=== PATIENT | female | born 1975 | race Caucasian/White ===

== ENCOUNTER 2018-01-26 11:25 | Emergency (ER) | payer MEDICAID ==
[~2018-01-26] VITALS: Ht 152.4 cm; Wt 66.0 kg
[~2018-01-26 11:25] MED LIST: ACET-2178 PO; NO MEDS TO REPORT
[2018-01-26 14:27] LABS: BASOPHILS % 0.8 % (0.0-2.0); EOSINOPHILS % 0.7 % (0.0-5.0); HEMATOCRIT. 27.9 % (36.0-48.0); LYMPHOCYTES % 24.3 % (20.0-50.0); MEAN CORPUSCULAR HEMOGLOBIN 16.4 pg (28.0-32.0); MEAN CORPUSCULAR VOLUME 56.9 fL (81.0-99.0); MEAN PLATELET VOLUME 8.7 fl (7.4-10.4); MONOCYTES % 4.1 % (2.0-8.0); NEUTROPHILS % 70.1 % (40.0-76.0); PLATELET 440 x1000/uL (130-400); RED BLOOD CELL COUNT 4.91 mill/uL (4.2-5.4); RED CELL DISTRIBUTION WIDTH 18.7 % (11.6-14.6)
[2018-01-26 14:33] LABS: CHLORIDE 107 mEq/L (98-107)
[2018-01-26 14:35] LABS: PARTIAL THROMBOPLASTIN TIME 24.8 sec (23.4-31.0); PROTHROMBIN TIME 10.7 sec (9.4-11.6)
[2018-01-26 15:40] LABS: PLATELET ESTIMATE INCREASED
[2018-01-26 16:31] LABS: CLARITY URINE CLEAR (CLEAR); COLOR URINE YELLOW (YELLOW); KETONES URINE NEGATIVE (NEGATIVE); LEUKOCYTE ESTERASE URINE NEGATIVE (NEGATIVE); NITRITE URINE NEGATIVE (NEGATIVE); OCCULT BLOOD URINE 2+ (NEGATIVE); PH URINE 5.5 (4.5-8.0); PROTEIN URINE NEGATIVE (NEGATIVE); SPECIFIC GRAVITY URINE 1.022 (1.005-1.030); UROBILINOGEN URINE 0.2 E.U./dL (0.2-1.0)
[2018-01-26] MEDS ORDERED: METOCLOPRAMIDE HCL 10MG/2ML VIAL IV ONE (17:15)
[2018-01-26] MEDS ORDERED: ACETAMINOPHEN 325MG TABLET PO ONE (17:15)
[2018-01-26] MEDS ORDERED: SODIUM CHLORIDE 0.9% 1,000 ML IV ONE (17:15)
[2018-01-26 19:54] VITALS: BP 121/69
== END 2018-01-26 20:01 | disposition home or self-care (01) ==
LOC: ER 13:08
DX: R51 Headache (principal); R42 Dizziness and giddiness; D64.9 Anemia, unspecified; I51.7 Cardiomegaly; Z88.6 Allergy status to analgesic agent
CPT/HCPCS: 36415; 70450; 71045; 80053; 81003; 81025; 85025; 85610; 85730; 93005; 96361; 96374; 99285; J2765; J7030; Z7610

== ENCOUNTER 2018-06-06 23:17 | Inpatient (IN) | payer SELFPAY ==
[~2018-06-06] VITALS: Ht 152.4 cm; Wt 63.5 kg
[2018-06-07 02:24] LABS: BASOPHILS % 0.2 % (0.0-2.0); HEMATOCRIT. 35.6 % (36.0-48.0); HEMOGLOBIN. 11.3 g/dL (12.0-16.0); LYMPHOCYTES % 14.2 % (20.0-50.0); MEAN CORPUSCULAR HEMOGLOBIN 23.7 pg (28.0-32.0); MEAN CORPUSCULAR VOLUME 74.7 fL (81.0-99.0); MEAN PLATELET VOLUME 8.6 fl (7.4-10.4); MONOCYTES % 4.9 % (2.0-8.0); NEUTROPHILS % 79.7 % (40.0-76.0); PLATELET 281 x1000/uL (130-400); RED BLOOD CELL COUNT 4.76 mill/uL (4.2-5.4); RED CELL DISTRIBUTION WIDTH 24.8 % (11.6-14.6)
[2018-06-07 02:26] LABS: CHLORIDE 105 mEq/L (98-107)
[2018-06-07] MEDS ORDERED: SODIUM CHLORIDE 0.9% 1,000 ML IV SCH (05:19)
[2018-06-07 06:10] LABS: HCG SCREEN NEGATIVE
[2018-06-07 06:37] LABS: PLATELET ESTIMATE NORMAL
[2018-06-07] MEDS ORDERED: BUTALBITAL/ACETAMINOPHEN/CAFFEINE 50/325/40MG TABLET PO PRN (08:30)
[2018-06-07] MEDS ORDERED: DOCUSATE SODIUM 100MG CAPSULE PO PRN (08:30)
[2018-06-07] MEDS ORDERED: NA PHOS,M-B/NA PHOS,DI-BA ENEMA 118ML PR PRN (08:30)
[2018-06-07] MEDS ORDERED: CLONIDINE 0.1MG TABLET PO PRN (08:30)
[2018-06-07] MEDS ORDERED: GUAIFENESIN 200MG/10ML SUGAR FREE UDC PO PRN (08:30)
[2018-06-07] MEDS ORDERED: DIPHENHYDRAMINE 50MG/ML VIAL IV PRN (08:30)
[2018-06-07] MEDS ORDERED: LORAZEPAM 0.5MG TABLET PO PRN (08:30)
[2018-06-07] MEDS ORDERED: IPRATROPIUM/ALBUTEROL 0.5-3(2.5)MG/3ML NEB INH PRN (08:30)
[2018-06-07] MEDS ORDERED: TRAMADOL 50MG TABLET PO PRN (08:30)
[2018-06-07] MEDS ORDERED: NITROGLYCERIN 0.4MG TABLET SL SL PRN (08:30)
[2018-06-07] MEDS ORDERED: MAGNESIUM/ALUMINUM HYDROXIDE/SIMETHICONE 30ML UDC PO PRN (08:30)
[2018-06-07] MEDS ORDERED: ACETAMINOPHEN 325MG TABLET PO PRN (08:30)
[2018-06-07] MEDS ORDERED: ONDANSETRON HCL 4MG/2ML INJ IV PRN (08:30)
[2018-06-07 09:00] VITALS: BP 129/76
[2018-06-07] MEDS ORDERED: FERR-71 MT (09:17)
[2018-06-07 09:18] VITALS: BP 129/76
[2018-06-07 09:32] LABS: CLARITY URINE CLEAR (CLEAR); COLOR URINE YELLOW (YELLOW); KETONES URINE NEGATIVE (NEGATIVE); LEUKOCYTE ESTERASE URINE NEGATIVE (NEGATIVE); NITRITE URINE NEGATIVE (NEGATIVE); OCCULT BLOOD URINE NEGATIVE (NEGATIVE); PROTEIN URINE NEGATIVE (NEGATIVE); SPECIFIC GRAVITY URINE 1.005 (1.005-1.030); UROBILINOGEN URINE 0.2 E.U./dL (0.2-1.0)
[2018-06-07 09:42] LABS: *COCAINE SCREEN URINE NEGATIVE (NEGATIVE)
[2018-06-07 09:43] LABS: *AMPHETAMINES SCREEN URINE NEGATIVE (NEGATIVE); *BARBITURATES SCREEN URINE NEGATIVE (NEGATIVE); CANNABINOID URINE SCREEN NEGATIVE (NEGATIVE); METHADONE URINE SCREEN NEGATIVE (NEGATIVE); OPIATES URINE SCREEN NEGATIVE (NEGATIVE); PHENCYCLIDINE URINE SCREEN NEGATIVE (NEGATIVE)
[2018-06-07 09:47] LABS: *BENZODIAZEPINES SCREEN URINE NEGATIVE (NEGATIVE)
[2018-06-07] MEDS: CLOPIDOGREL 75MG TABLET PO SCH (09:58)
[2018-06-07] MEDS: FAMOTIDINE 20MG TABLET PO SCH ×2 (09:58→21:48)
[2018-06-07] MEDS: ENOXAPARIN 40MG/0.4ML SYR SUBCUT SCH (13:20)
[2018-06-07 16:00] VITALS: BP 102/65
[2018-06-07 16:46] LABS: CREATINE KINASE 53 IU/L (26-192)
[2018-06-07 16:48] LABS: CREATINE KINASE MB FRACTION < 1.0 ng/mL (0.5-3.6)
[2018-06-07 20:00] VITALS: BP 123/80
[2018-06-07] MEDS ORDERED: ZOLPIDEM TARTRATE 5MG TABLET PO PRN (21:00)
[2018-06-08] VITALS: BP 122/72
[2018-06-08 00:27] LABS: CREATINE KINASE MB FRACTION < 1.0 ng/mL (0.5-3.6)
[2018-06-08 00:33] LABS: CREATINE KINASE 95 IU/L (26-192)
[2018-06-08 04:00] VITALS: BP 130/70
[2018-06-08 08:00] VITALS: BP 105/62
[2018-06-08] MEDS: CLOPIDOGREL 75MG TABLET PO SCH (09:39)
[2018-06-08] MEDS: ENOXAPARIN 40MG/0.4ML SYR SUBCUT SCH (09:39)
[2018-06-08] MEDS: FAMOTIDINE 20MG TABLET PO SCH (09:39)
[2018-06-08] MEDS ORDERED: REGADENOSON 0.4 MG/5 ML IV ONE (11:30)
[2018-06-08 13:08] VITALS: BP 105/62
== END 2018-06-08 15:52 | disposition home or self-care (01) | DRG 54 ==
LOC: ER 23:17 → 7WST 06-07 05:19 → EDBEDREQ 06-07 05:31 → ENRESERV 06-07 06:56
PROVIDERS: ADMIT Internal Medicine; ATTEND Internal Medicine
DX: R51 Headache (principal); D50.9 Iron deficiency anemia, unspecified; R07.89 Other chest pain; D72.829 Elevated white blood cell count, unspecified; R00.2 Palpitations; F41.9 Anxiety disorder, unspecified; Z98.891 History of uterine scar from previous surgery; Z79.899 Other long term (current) drug therapy; Z88.6 Allergy status to analgesic agent; Z88.8 Allergy status to other drugs, medicaments and biological substances
CPT/HCPCS: 36415; 71045; 78452; 80048; 80061; 80305; 81003; 82550; 82553; 83036; 84484; 84703; 85025; 85379; 87086; 93005; 93017; 93970; 96360; 96361; 96372; 99285; A9500; J1650; J7030

== ENCOUNTER 2023-11-06 09:51 | Emergency (ER) | payer MEDICAID ==
[~2023-11-06] VITALS: Ht 160 cm; Wt 77.0 kg
[~2023-11-06 09:51] MED LIST changes: -ACET-2178 PO; +FERR-71 MT; -NO MEDS TO REPORT; +TOPUD PO
[2023-11-06 10:00] VITALS: O2SAT 100
[2023-11-06] MEDS: HYDROCODONE/ACETAMINOPHEN 5/325MG TABLET PO STA (10:37)
[2023-11-06 10:44] LABS: BASOPHILS % 0.2 % (0.0-2.0); EOSINOPHILS % 2.2 % (0.0-5.0); HEMATOCRIT. 32.3 % (36.0-48.0); HEMOGLOBIN. 9.9 g/dL (12.0-16.0); LYMPHOCYTES % 25.5 % (20.0-50.0); MEAN CORPUSCULAR HEMOGLOBIN 21.1 pg (28.0-32.0); MEAN CORPUSCULAR HGB CONC 30.6 g/dL (31.0-37.0); MEAN CORPUSCULAR VOLUME 68.9 fL (81.0-99.0); MEAN PLATELET VOLUME 8.3 fl (7.4-10.4); MONOCYTES % 6.1 % (2.0-8.0); PLATELET 325 x1000/uL (130-400); RED BLOOD CELL COUNT 4.69 mill/uL (4.2-5.4); RED CELL DISTRIBUTION WIDTH 17.3 % (11.6-14.6); WHITE BLOOD COUNT 11.3 x1000/uL (4.5-11.0)
[2023-11-06 10:49] LABS: DIFFERENTIAL COMMENT 1
[2023-11-06 10:51] LABS: ADD RBC MORPHOLOGY YES
[2023-11-06 10:58] LABS: ALANINE AMINOTRANSFERASE 64 IU/L (10-49); ALBUMIN 4.3 g/dL (3.2-4.8); ASPARTATE AMINOTRANSFERASE 43 IU/L (<34); BILIRUBIN TOTAL 0.4 mg/dL (0.1-1.0); CALCIUM 8.9 mg/dL (8.7-10.4); CARBON DIOXIDE 25 mEq/L (21-32); CHLORIDE 105 mEq/L (98-107); CREATININE 0.6 mg/dL (0.6-1.0); GLUCOSE 103 mg/dL (70-105); POTASSIUM 3.4 mEq/L (3.5-5.1); PROTEIN TOTAL 7.5 g/dL (6.0-8.3); SODIUM 137 mEq/L (136-145); UREA NITROGEN BLOOD 13 mg/dL (9-23)
[2023-11-06 10:59] LABS: HCG SCREEN NEGATIVE
[2023-11-06 11:02] LABS: TROPONIN I HIGH SENSITIVITY < 4 ng/L (3.0-34)
[2023-11-06 11:45] LABS: MICROCYTOSIS 2+; PLATELET ESTIMATE NORMAL
[2023-11-06 13:13] LABS: TROPONIN I HIGH SENSITIVITY < 4 ng/L (3.0-34)
[2023-11-06] MEDS ORDERED: TOPUD MT (13:21)
[2023-11-06 14:10] VITALS: BP 144/79; PULSE 92; RESP 16; TEMP 98.2
== END 2023-11-06 14:11 | disposition home or self-care (01) ==
LOC: ER 09:51
DX: R07.89 Other chest pain (principal); R51.9 Headache, unspecified; Z91.018 Allergy to other foods; Z88.6 Allergy status to analgesic agent; Z88.8 Allergy status to other drugs, medicaments and biological substances; Z98.890 Other specified postprocedural states
CPT/HCPCS: 80053; 84703; 83880; 85025; 84484; 36415; 71045; 70450; 93005; 99291; Z7610 ×2